=== PATIENT | male | born 1985 | race Caucasian/White ===

== ENCOUNTER 2025-01-06 18:47 | Emergency (ER) | payer SELFPAY ==
[~2025-01-06] VITALS: Ht 175.3 cm; Wt 106.6 kg
[2025-01-06 19:00] VITALS: BP 129/84; PULSE 79; RESP 16; TEMP 98.4; O2SAT 96
[2025-01-06] MEDS ORDERED: AMOX875T4 PO (20:46)
[2025-01-06] MEDS ORDERED: ACET500T58 PO (20:46)
--- NOTE | 2025-01-06 20:46 | ED.PDOC ---
HPI Comments 39 YEAR OLD MALE PRESENTS TO ER WITH COMPLAINTS OF LACERATION X1 DAY. PATIENT REPORTS THAT A BASEBALL RICOCHETED AND HIT HIM IN HIS RIGHT LOWER LIP WHILE AT THE [employer] AT 6:30 P.M. PRIOR TO ARRIVAL TO ER AND SUSTAINED LACERATIONS TO RIGHT LOWER LIP AT THAT TIME. HE REPORTS 2/10 PAIN LOCALIZED TO LACERATIONS TO RIGHT LOWER LIP. DENIES HEAD INJURY/LOC. STATES HE IS UP-TO-DATE ON HIS TETANUS SHOT. DENIES DENTAL PAIN/BROKEN TEETH, NUMBNESS/TINGLING OR ANY FURTHER SYMPTOMS/COMPLAINTS Chief Complaint: Laceration Time Seen by MD: 18:59 Primary Care Provider: UNKNOWN Reviewed Notes: Nurses Notes, Medications, Allergies Allergies: Coded Allergies: NO KNOWN ALLERGIES (Unverified , 01/06/25) Home Meds Active Scripts Acetaminophen (Acetaminophen) 500 Mg Tab, 500 MG PO Q4HPRN, #30 TAB 0 Refills Prov:THOMAS GAITAN 01/06/25 Amoxicillin & Pot Clavulanate (Amoxicillin/Potassium Cla) 875 Mg Tab, 1 TAB PO BID for 7 Days, #14 TAB 0 Refills Prov:THOMAS GAITAN 01/06/25 Information Source: Patient Mode of Arrival: Ambulatory Complexity: Simple Laceration Length (cm): 2 Skin Type: Irregular Past Medical History PAST MEDICAL HISTORY: Denies Surgical History: Denies all surgeries Family History Family History: Unknown Social History Smoker: Non-Smoker Alcohol: Denies ETOH Use Drugs: Denies Drug Use Lives In: Home Constitutional: denies: chills, diaphoresis, fatigue, fever, malaise, sweats, weakness, others EENTM: reports: others ( STATED IN HPI) Respiratory: denies: cough, hemoptysis, orthopnea, SOB at rest, shortness of breath, SOB with excertion, stridor, wheezing, others Cardiovascular: denies: chest pain, dizzy spells, diaphoresis, Dyspnea on exertion, edema, irregular heart beat, left arm pain, lightheadedness, palpitations, PND, syncope, others Gastrointestinal: denies: abdomen distended, abdominal pain, blood streaked bowels, constipated, diarrhea, dysphagia, difficulty swallowing, hematemesis, melena, nausea, poor appetite, poor fluid intake, rectal bleeding, rectal pain, vomiting, others Genitourinary: denies: burning, dysuria, flank pain, frequency, hematuria, incontinence, penile discharge, penile sore, pain, testicle pain, testicle swelling, urgency, others Neurological: denies: dizziness, fainting, headache, left sided numbness, left sided weakness, numbness, paresthesia, pre-existing deficit, right sided numbness, right sided weakness, seizure, speech problems, tingling, tremors, weakness, others Musculoskeletal: denies: back pain, gout, joint pain, joint swelling, muscle pain, muscle stiffness, neck pain, others Integumetry: reports: others ( STATED IN HPI) Allergic/Immunocompromised: denies: Difficulty Healing, Frequent Infections, Hives, Itching, others Hematologic/Lymphatic: denies: anemia, blood clots, easy bleeding, easy bruising, swollen glands, others Endocrine: denies: excessive hunger, excessive sweating, excessive thirst, excessive urination, flushing, intolerance to cold, intolerance to heat, unexplained weight gain, unexplained weight loss, others Psychiatric: denies: anxiety, bipolar disorder, depression, hopeless, panic disorder, schizophrenia, sleepless, suicidal, others Physical Exam General Appearance: No Apparent Distress, Obese HEENT: PERRL/EOMI, Pharynx Normal, TMs Normal, Other (2 LACERATIONS <2 CM IN SIZE TO RIGHT LOWER INNER LIP NOTED. SLIGHT TTP/SWELLING/ERYTHEMA LOCALIZED TO WOUND EDGES. NO ACUTE DENTAL CHANGES NOTED) Neck: Full Range of Motion, Non-Tender, Normal Respiratory: Chest Non-Tender, Lungs Clear, No Accessory Muscle Use, No Respiratory Distress, Normal Breath Sounds Cardiovascular: No Murmur, No Gallop, Regular Rate/Rhythm Breast Exam: Deferred Gastrointestinal: NOT DONE Genitalia: Deferred Pelvic: Deferred Rectal: Deferred Extremities: Normal capillary refill, Normal range of motion Neurologic: Alert, early childhood coordinator II-XII nml as Tested, No Motor Deficits, Normal Affect, Normal Mood, No Sensory Deficits Cerebellar Function: Normal Reflexes: Normal Skin: Dry, Normal Color, Warm Lymphatic: No Adenopathy Was a procedure done? Was a procedure done?: Yes Sedation Sedation?: No Laceration Repair : Location RIGHT LOWER INNER LIP Length 2 LACERATIONS <2 CM IN SIZE Anesthetic: Lidocaine (1%) Laceration Repair Prep: by Irrigation (WITHOUT ANY SIGNS OF FOREIGN BODY) Laceration Repair Wound Comple: epidermis/dermis repair Laceration Repair: Number of sutures (TOTAL OF 3 SUTURES PLACED WITHOUT COMPLICATION), Size (5-0 MONOCRYL), Simple Informed consent obtained: Yes Risks, benefits, and alternati: Yes Differential diagnosis Generic Laceration: Fracture, Retained Foriegn Body, Neurovascular Injury Differential Diagnosis: Closed Head Injury X-Ray, Labs, Meds, VS Vital Signs Date Time Temp Pulse Resp B/P (MAP) Pulse Ox O2 Delivery O2 Flow Rate FiO2 01/06/25 19:00 98.4 79 16 129/84 (99) 96 WOUND CARE/CLEANING DISCUSSED AND ADVISED PATIENT HAD IMPROVEMENT IN SYMPTOMS AND IN NO DISTRESS PRIOR TO DISCHARGE ADVISED TO FOLLOW UP WITH PCP IN 1-2 DAYS PATIENT VERBALIZED UNDERSTANDING AND AGREEABLE WITH CURRENT PLAN OF CARE ADVISED TO RETURN TO ER IMMEDIATELY IF SYMPTOMS WORSEN Time of 1ST Reevaluation: 20:42 Reevaluation 1ST: N/A Patient Education/Counseling: Diagnosis, Treatment, Prognosis, Need For Follow Up Family Education/Counseling: No Family Present Departure 1 Departure Time of Disposition: 21:08 Impression: Primary Impression: Lip laceration Qualified Codes: S01.511A - Laceration without foreign body of lip, initial encounter Disposition: HOME / SELF CARE / HOMELESS Condition: Stable e-Prescriptions Acetaminophen (Acetaminophen) 500 Mg Tab 500 MG PO Q4HPRN, #30 TAB 0 Refills Prov: THOMAS GAITAN 01/06/25 Amoxicillin & Pot Clavulanate (Amoxicillin/Potassium Cla) 875 Mg Tab 1 TAB PO BID for 7 Days, #14 TAB 0 Refills Prov: THOMAS GAITAN 01/06/25 Discharged With: Self Critical Care Note Critical Care Time?: No Stability Stability form required: No Heart Score Heart Score: Heart Score Response (Comments) Value History N/A 0 EKG N/A 0 Age N/A 0 Risk Factors N/A 0 Troponin N/A 0 Total 0 THOMAS GAITAN Jan 06, 2025 20:46
== END 2025-01-06 21:14 | disposition home or self-care (01) ==
LOC: ER 18:47
DX: S01.511A Laceration without foreign body of lip, initial encounter (principal); W22.8XXA Striking against or struck by other objects, initial encounter; Y93.89 Activity, other specified; Y92.89 Other specified places as the place of occurrence of the external cause; Y99.8 Other external cause status
CPT/HCPCS: 12011